=== PATIENT | male | born 1960 | race Caucasian/White ===

== ENCOUNTER → 2021-04-22 | Emergency (ER) | payer SELFPAY ==
[~2021-04-22] VITALS: Ht 172.7 cm; Wt 72.6 kg
[2021-04-22 12:53] VITALS: BP 130/64
== END | disposition home or self-care (01) ==
LOC: EDBD 12:42 → ER 12:42
DX: S00.81XA Abrasion of other part of head, initial encounter (principal); F17.210 Nicotine dependence, cigarettes, uncomplicated; Y08.89XA Assault by other specified means, initial encounter; Y93.89 Activity, other specified; Y92.89 Other specified places as the place of occurrence of the external cause; Y99.8 Other external cause status